=== PATIENT | female | born 1990 | race American Indian/Alaskan Native ===

== ENCOUNTER 2017-12-21 23:22 | Emergency (ER) | payer MEDICAID ==
[2017-12-21 23:53] VITALS: RESP 17; TEMP 98.6
--- NOTE | 2017-12-22 00:12 | ED PDOC ---
Arrival/HPI - General Chief Complaint: Abdominal Pain Time Seen by Provider: 12/21/17 23:50 Historian: Patient EM Caveat: Acuity of Condition - History of Present Illness Narrative History of Present Illness (Text): 12/22/17 00:07 Pt is a 27 yr old A2 female who is 24 wks GA, presents to the ER with suprapubic pain and associated nausea and vomiting for the past day. Pt states that she began to have some cramping at 12 today followed by vomiting of approx 1 cup; her last meal was today at 2 pm and has not vomited since that time. States on , she had to run after her toddler to catch her; felt some belly pain after that. Pt reports good movement and no change in appetite , no vaginal bleeding, no back pain, no fever. 12/22/17 00:32 Time/Duration: 4-6 hours Symptom Onset: Sudden Symptom Course: Improving Quality: Pressure Severity Level: 1 Activities at Onset: Light Context: Home Past Medical History - Provider Review Nursing Documentation Reviewed: Yes - Travel History Have you recently traveled outside [place] w/in the past 3 mons?: No - Infectious Disease Hx of Infectious Diseases: None - Cardiac Hx Cardiac Disorders: No (pt denies) - Psychiatric Hx Substance Use: No - Anesthesia Hx Anesthesia: No Family/Social History - Physician Review Nursing Documentation Reviewed: Yes Family/Social History: Unknown Family HX Smoking Status: Never Smoked Hx Alcohol Use: No Hx Substance Use: No Allergies/Home Meds Allergies/Adverse Reactions: Allergies No Known Allergies Allergy (Verified 12/21/17 23:50) Home Medications: Home Meds Medication Instructions Recorded Confirmed No Known Home Med 12/21/17 12/21/17 Review of Systems - Review of Systems Constitutional: Fatigue Eyes: Normal ENT: Normal Respiratory: Normal Cardiovascular: Normal Gastrointestinal: Abdominal Pain, Nausea, Vomiting Genitourinary Female: Normal. absent: Dysuria, Vaginal Bleeding, Vaginal Discharge Musculoskeletal: Normal Skin: Normal Neurological: Normal Endocrine: Normal Hemo/Lymphatic: Normal Psychiatric: Normal Physical Exam Vital Signs Reviewed: Yes Vital Signs Temp Pulse Resp BP Pulse Ox 12/22/17 01:42 98.6 F 82 17 130/60 100 12/21/17 23:52 98.6 F 88 17 137/62 97 Temperature: Afebrile Blood Pressure: Normal Pulse: Regular Respiratory Rate: Normal Appearance: Positive for: Well-Appearing, Non-Toxic, Comfortable Pain Distress: None Mental Status: Positive for: Alert and Oriented X 3 - Systems Exam Head: Present: Atraumatic, Normocephalic Pupils: Present: PERRL Extroacular Muscles: Present: EOMI Conjunctiva: Present: Normal Mouth: Present: Moist Mucous Membranes Neck: Present: Normal Range of Motion Respiratory/Chest: Present: Clear to Auscultation, Good Air Exchange. No: Respiratory Distress, Accessory Muscle Use Cardiovascular: Present: Regular Rate and Rhythm, Normal S1, S2. No: Murmurs Abdomen: Present: Tenderness (suprapubic), Normal Bowel Sounds, Other (24 wks GA with active movement). No: Distention, Peritoneal Signs, Rebound, Guarding, McBurney's Point Tender, Rovsing's Sign Present Back: Present: Normal Inspection. No: CVA Tenderness, Midline Tenderness, Paraspinal Tenderness, Pain with Leg Raise Upper Extremity: Present: Normal Inspection. No: Cyanosis, Edema Lower Extremity: Present: Normal Inspection. No: Edema Neurological: Present: GCS=15, CN II-XII Intact, Speech Normal Skin: Present: Warm, Dry, Normal Color. No: Rashes Psychiatric: Present: Alert, Oriented x 3, Normal Insight, Normal Concentration Medical Decision Making ED Course and Treatment: 12/22/17 00:33 Impression Pt is a 27 yr old A2 female who is 24 wks GA, presents to the ER with suprapubic pain and associated nausea and vomiting for the past day. Ddx: Tawandajt diane, early labour Plan Case DW Dr. Szymanski; [facility] [place] was contacted to transfer pt; pt to be on monitor Pt advised and consented Hemodynamically stable - Lab Interpretations Lab Results: Lab Results 12/22/17 00:15: Urine Color yellow, Urine Appearance Clear, Urine pH 6.5, Ur Specific [place] 1.025, Urine Protein 30 H, Urine Glucose (UA) Negative, Urine Ketones Negative, Urine Blood Small H, Urine Nitrate Negative, Urine Bilirubin Negative, Urine Urobilinogen 0.2, Ur Leukocyte Esterase Trace H, Urine RBC 10 - 15, Urine WBC 5 - 10, Ur Epithelial Cells 6 - 8, Amorphous Sediment Trace, Urine Bacteria Trace Disposition/Present on Arrival - Present on Arrival Any Indicators Present on Arrival: Yes History of DVT/PE: No History of Uncontrolled Diabetes: No Urinary Catheter: No History of Decub. Ulcer: No History Surgical Site Infection Following: None - Disposition Have Diagnosis and Disposition been Completed?: Yes Diagnosis: Abdominal pain affecting Disposition: Transfer [facility] [place] Disposition Time: 00:39 Patient Plan: Transfer To ([facility] [place]) Condition: GOOD Referrals: Mimi Ferguson, [Primary Care Provider] - Follow up with primary Forms: [employer] (Turkish)
[2017-12-22 00:35] LABS: PH,URINE 6.5 (4.7-8.0); URINE BILIRUBIN NEGATIVE (NEGATIVE); URINE BLOOD SMALL (NEGATIVE); URINE GLUCOSE (UA) NEGATIVE (NEGATIVE); URINE LEUKOCYTE ESTERASE TRACE Leu/uL (NEGATIVE); URINE PROTEIN 30 mg/dL (<30 mg/dL); URINE UROBILINOGEN 0.2 E.U./dL (<1 E.U./dL)
[2017-12-22 00:37] LABS: URINE APPEARANCE CLEAR (CLEAR)
[2017-12-22 00:40] LABS: URINE AMORPHOUS SEDIMENT TRACE; URINE BACTERIA TRACE (NEG)
[2017-12-22 01:43] VITALS: BP 130/60; PULSE 82; O2SAT 100
== END 2017-12-22 01:43 | disposition short-term general hospital (02) ==
LOC: ED 23:22 → MERGE 23:22 → ED 12-22 01:43
DX: O26.892 Other specified pregnancy related conditions, second trimester (principal); R10.9 Unspecified abdominal pain; Z3A.24 24 weeks gestation of pregnancy